=== PATIENT | male | born 1970 | race Caucasian/White ===

== ENCOUNTER 2016-05-19 12:47 | Emergency (ER) | payer BC ==
--- NOTE | 2016-05-19 12:56 | EDM.PDOC ---
ED HISTORY OF PRESENT ILLNESS - General Stated Complaint: HEART ATTACK Time Seen by Provider: 05/19/16 12:53 Source of Information: Reports: Patient History Limitations: Reports: No limitations - History of Present Illness INITIAL COMMENTS - FREE TEXT/NARRATIVE: HISTORY AND PHYSICAL: [46-year-old male presenting with left-sided chest pain Discussion this pain as 8/10-10 out of 10] History of Present Illness: [] Patient took Ambien and Nyquil on Thursday night. Awakened this morning at 6 AM. He does not remember anything that happened after going to bed Thursday night he was on the floor when he awakened He thinks he fell down the stairs at some time Thursday. He lives alone. Strong family history of heart disease with MIs under the age of 50. Patient was snow skiing in [place], [place] last weekend and fell hurting his left ribs Review of Systems: As per history of present illness and below otherwise all systems reviewed and negative. Past medical history: As per history of present illness and as reviewed below otherwise noncontributory. Surgical history: As per history of present illness and as reviewed below otherwise noncontributory. Social history: No reported history of drug or alcohol abuse. Family history: As per history of present illness and as reviewed below otherwise noncontributory. Physical exam: Alert, able to speak in full sentences answering questions appropriately. HEENT: Multiple scrapes to his head, normocehpalic, pupils reactive, negative for conjunctival pallor or scleral icterus, mucous membranes moist, throat clear , neck supple, nontender, trachea midline. Lungs: Clear to auscultation, breath sounds equal bilaterally, chest tender. Ribs tender on left side laterally. Heart: S1S2, regular, negative for clicks, rubs, or JVD. Abdomen: Soft, nondistended, nontender. Negative for masses or hepatossplenmegaly. Negative for costovertebral tenderness. Pelvis: Stable nontender. Genitourinary: Deferred. Rectal: Deferred Extremities: Atraumatic, negative for cords or calf pain. Neurovascular unremarkable. Neuro: Awake, alert, oriented. Cranial nerves II through XII unremarkable. Cerebellum unremarkable. Motor and sensory unremarkable throughout. Exam nonfocal. I discussed case with Dr. Chai Alvarado and patient was given the option of observation overnight and declines. His friend will be coming shortly to stay with him. Patient verbalized understanding of the risk associated with going home and has chosen to go home. Diagnostics: [CBC CMP troponin amylase lipase EKG chest x-ray urine drug screen head CT left side ribs] Therapeutics: Nitrostat Zofran] Impression: [Atypical chest pain Concussion with loss of consciousness Nondisplaced ninth rib fracture and left subacute ] Plan: [Home The patient does have a friend that is driving here and will stay with him for the next few days and make sure he is okay [id number] Motrin as needed with Tylenol for discomfort Any chest pain or significant pain he will need to be reevaluated] Definitive disposition and diagnosis as appropriate pending reevaluation and review of above. Timing/Duration: Reports: Hour(s):, Other (unknown) Location, General: Reports: head, chest, other (left ribs) Quality: Reports: Stabbing Improves with: Reports: None Worsens with: Reports: Movement Associated Symptoms (General): Reports: confusion (of the last 24 hours) - Related Data Allergies/ADRs: Allergies Allergy/AdvReac Type Severity Reaction Status Date / Time No Known Allergies Allergy Verified 05/19/16 12:48 Home Meds: Home Meds Lisinopril 20 mg PO DAILY 05/19/16 [History] Zolpidem [Ambien] 10 mg PO BEDTIME 05/19/16 [History] ED ROS GENERAL - Review of Systems Review Of Systems: ROS reveals no pertinent complaints other than HPI. ED EXAM, GENERAL - Physical Exam Exam: See Below (see dictation) Course - Vital Signs Last Recorded V/S: Last Vital Signs Temp 37.1 C 05/19/16 12:50 Pulse 99 05/19/16 15:36 Resp 18 05/19/16 15:36 BP 137/82 05/19/16 15:36 Pulse Ox 96 05/19/16 15:36 - Orders/Labs/Meds Orders: Active Orders 24 hr Category Date Time Status EKG Documentation Completion [RC] STAT Care 05/19/16 15:57 Active Chest 1V Frontal [CR] Routine Exams 05/19/16 13:06 Taken Head wo Cont [CT] Stat Exams 05/19/16 14:29 Taken Ribs 2V wo Chest Lt [CR] Stat Exams 05/19/16 14:31 Taken Labs: Laboratory Tests 05/19/16 05/19/16 05/19/16 Range/Units 12:59 13:00 13:00 WBC 12.87 H (4.0-11.0) K/uL RBC 5.40 (4.50-5.90) M/uL Hgb 17.3 H (13.0-17.0) g/dL Hct 49.6 (38.0-50.0) % MCV 91.9 (80.0-98.0) fL MCH 32.0 (27.0-32.0) pg MCHC 34.9 (31.0-37.0) g/dL RDW Std Deviation 44.6 (28.0-62.0) fl RDW Coeff of Ishmael 14 (11.0-15.0) % Plt Count 216 (150-400) K/uL MPV 9.40 (7.40-12.00) fL Neut % (Auto) 57.3 (48.0-80.0) % Lymph % (Auto) 34.3 (16.0-40.0) % [place] % (Auto) 7.4 (0.0-15.0) % Eos % (Auto) 0.5 (0.0-7.0) % Baso % (Auto) 0.5 (0.0-1.5) % Neut # 7.4 H (1.4-5.7) K/uL Lymph # 4.4 H (0.6-2.4) K/uL [place] # 1.0 H (0.0-0.8) K/uL Eos # 0.1 (0.0-0.7) K/uL Baso # 0.1 (0.0-0.1) K/uL Nucleated RBC % 0.0 /100WBC Nucleated RBCs # 0 K/uL INR 0.96 (0.86-1.11) Sodium (136-146) mmol/L Potassium (3.5-5.1) mmol/L Chloride (98-110) mmol/L Carbon Dioxide (21-31) mmol/L BUN (6.0-23.0) mg/dL Creatinine (0.6-1.5) mg/dL Est Cr Clr Drug Dosing mL/min Estimated GFR (MDRD) ml/min Glucose (60-110) mg/dL POC Glucose 114 H (60-110) mg/dL Calcium (8.8-10.8) mg/dL Total Bilirubin (0.1-1.5) mg/dL AST (5-40) IU/L ALT (8-54) IU/L Alkaline Phosphatase (40-150) Troponin I (0.0-0.29) NG/ML Total Protein (6.0-8.0) g/dL Albumin (3.5-5.0) g/dL Globulin (2.0-3.5) g/dL Albumin/Globulin Ratio (1.3-2.8) Amylase (10-90) U/L Lipase (7-80) U/L Urine Color Urine Appearance Urine pH (5.0-8.0) Ur Specific [place] (1.001-1.035) Urine Protein (NEGATIVE) mg/dL Urine Glucose (UA) (NEGATIVE) mg/dL Urine Ketones (NEGATIVE) mg/dL Urine Occult Blood (NEGATIVE) Urine Nitrite (NEGATIVE) Urine Bilirubin (NEGATIVE) Urine Urobilinogen (<2.0) EU/dL Ur Leukocyte Esterase (NEGATIVE) Urine RBC (0-2/HPF) Urine WBC (0-5/HPF) Ur Epithelial Cells (NONE-FEW) Urine Bacteria (NEGATIVE) Urine Opiates Screen (NEGATIVE) Ur Oxycodone Screen (NEGATIVE) Urine Methadone Screen (NEGATIVE) Ur Barbiturates Screen (NEGATIVE) Ur Phencyclidine Scrn (NEGATIVE) Ur Amphetamine Screen (NEGATIVE) U Methamphetamines Scrn (NEGATIVE) U Benzodiazepines Scrn (NEGATIVE) U Cocaine Metab Screen (NEGATIVE) U Marijuana (THC) Screen (NEGATIVE) 05/19/16 05/19/16 05/19/16 Range/Units 13:45 13:45 14:03 WBC (4.0-11.0) K/uL RBC (4.50-5.90) M/uL Hgb (13.0-17.0) g/dL Hct (38.0-50.0) % MCV (80.0-98.0) fL MCH (27.0-32.0) pg MCHC (31.0-37.0) g/dL RDW Std Deviation (28.0-62.0) fl RDW Coeff of Ishmael (11.0-15.0) % Plt Count (150-400) K/uL MPV (7.40-12.00) fL Neut % (Auto) (48.0-80.0) % Lymph % (Auto) (16.0-40.0) % [place] % (Auto) (0.0-15.0) % Eos % (Auto) (0.0-7.0) % Baso % (Auto) (0.0-1.5) % Neut # (1.4-5.7) K/uL Lymph # (0.6-2.4) K/uL [place] # (0.0-0.8) K/uL Eos # (0.0-0.7) K/uL Baso # (0.0-0.1) K/uL Nucleated RBC % /100WBC Nucleated RBCs # K/uL INR (0.86-1.11) Sodium 136 (136-146) mmol/L Potassium 4.5 (3.5-5.1) mmol/L Chloride 100 (98-110) mmol/L Carbon Dioxide 24 (21-31) mmol/L BUN 10 (6.0-23.0) mg/dL Creatinine 1.0 (0.6-1.5) mg/dL Est Cr Clr Drug Dosing 100.40 mL/min Estimated GFR (MDRD) > 60.0 ml/min Glucose 110 (60-110) mg/dL POC Glucose (60-110) mg/dL Calcium 9.4 (8.8-10.8) mg/dL Total Bilirubin 1.0 (0.1-1.5) mg/dL AST 38 (5-40) IU/L ALT 41 (8-54) IU/L Alkaline Phosphatase 101 (40-150) Troponin I (0.0-0.29) NG/ML Total Protein 7.3 (6.0-8.0) g/dL Albumin 4.2 (3.5-5.0) g/dL Globulin 3.1 (2.0-3.5) g/dL Albumin/Globulin Ratio 1.4 (1.3-2.8) Amylase 37 (10-90) U/L Lipase 21 (7-80) U/L Urine Color YELLOW Urine Appearance CLEAR Urine pH 6.0 (5.0-8.0) Ur Specific [place] <= 1.005 (1.001-1.035) Urine Protein NEGATIVE (NEGATIVE) mg/dL Urine Glucose (UA) NEGATIVE (NEGATIVE) mg/dL Urine Ketones NEGATIVE (NEGATIVE) mg/dL Urine Occult Blood NEGATIVE (NEGATIVE) Urine Nitrite NEGATIVE (NEGATIVE) Urine Bilirubin NEGATIVE (NEGATIVE) Urine Urobilinogen 1.0 (<2.0) EU/dL Ur Leukocyte Esterase NEGATIVE (NEGATIVE) Urine RBC 0-1 (0-2/HPF) Urine WBC 0-1 (0-5/HPF) Ur Epithelial Cells RARE (NONE-FEW) Urine Bacteria OCCASIONAL (NEGATIVE) Urine Opiates Screen NEGATIVE (NEGATIVE) Ur Oxycodone Screen NEGATIVE (NEGATIVE) Urine Methadone Screen NEGATIVE (NEGATIVE) Ur Barbiturates Screen NEGATIVE (NEGATIVE) Ur Phencyclidine Scrn NEGATIVE (NEGATIVE) Ur Amphetamine Screen NEGATIVE (NEGATIVE) U Methamphetamines Scrn NEGATIVE (NEGATIVE) U Benzodiazepines Scrn NEGATIVE (NEGATIVE) U Cocaine Metab Screen NEGATIVE (NEGATIVE) U Marijuana (THC) Screen NEGATIVE (NEGATIVE) 05/19/16 05/19/16 Range/Units 14:03 16:08 WBC (4.0-11.0) K/uL RBC (4.50-5.90) M/uL Hgb (13.0-17.0) g/dL Hct (38.0-50.0) % MCV (80.0-98.0) fL MCH (27.0-32.0) pg MCHC (31.0-37.0) g/dL RDW Std Deviation (28.0-62.0) fl RDW Coeff of Ishmael (11.0-15.0) % Plt Count (150-400) K/uL MPV (7.40-12.00) fL Neut % (Auto) (48.0-80.0) % Lymph % (Auto) (16.0-40.0) % [place] % (Auto) (0.0-15.0) % Eos % (Auto) (0.0-7.0) % Baso % (Auto) (0.0-1.5) % Neut # (1.4-5.7) K/uL Lymph # (0.6-2.4) K/uL [place] # (0.0-0.8) K/uL Eos # (0.0-0.7) K/uL Baso # (0.0-0.1) K/uL Nucleated RBC % /100WBC Nucleated RBCs # K/uL INR (0.86-1.11) Sodium (136-146) mmol/L Potassium (3.5-5.1) mmol/L Chloride (98-110) mmol/L Carbon Dioxide (21-31) mmol/L BUN (6.0-23.0) mg/dL Creatinine (0.6-1.5) mg/dL Est Cr Clr Drug Dosing mL/min Estimated GFR (MDRD) ml/min Glucose (60-110) mg/dL POC Glucose (60-110) mg/dL Calcium (8.8-10.8) mg/dL Total Bilirubin (0.1-1.5) mg/dL AST (5-40) IU/L ALT (8-54) IU/L Alkaline Phosphatase (40-150) Troponin I < 0.10 < 0.10 (0.0-0.29) NG/ML Total Protein (6.0-8.0) g/dL Albumin (3.5-5.0) g/dL Globulin (2.0-3.5) g/dL Albumin/Globulin Ratio (1.3-2.8) Amylase (10-90) U/L Lipase (7-80) U/L Urine Color Urine Appearance Urine pH (5.0-8.0) Ur Specific [place] (1.001-1.035) Urine Protein (NEGATIVE) mg/dL Urine Glucose (UA) (NEGATIVE) mg/dL Urine Ketones (NEGATIVE) mg/dL Urine Occult Blood (NEGATIVE) Urine Nitrite (NEGATIVE) Urine Bilirubin (NEGATIVE) Urine Urobilinogen (<2.0) EU/dL Ur Leukocyte Esterase (NEGATIVE) Urine RBC (0-2/HPF) Urine WBC (0-5/HPF) Ur Epithelial Cells (NONE-FEW) Urine Bacteria (NEGATIVE) Urine Opiates Screen (NEGATIVE) Ur Oxycodone Screen (NEGATIVE) Urine Methadone Screen (NEGATIVE) Ur Barbiturates Screen (NEGATIVE) Ur Phencyclidine Scrn (NEGATIVE) Ur Amphetamine Screen (NEGATIVE) U Methamphetamines Scrn (NEGATIVE) U Benzodiazepines Scrn (NEGATIVE) U Cocaine Metab Screen (NEGATIVE) U Marijuana (THC) Screen (NEGATIVE) Meds: Medications Discontinued Medications Generic Name Dose Route Start Last Admin Trade Name Freq PRN Reason Stop Dose Admin Aspirin 324 mg 05/19/16 13:06 05/19/16 13:16 Aspirin PO 05/19/16 13:07 324 mg ONETIME ONE Administration Morphine Sulfate 2 mg 05/19/16 13:03 05/19/16 14:03 Morphine IV 05/19/16 13:04 Not Given ONETIME ONE Nitroglycerin 0.4 mg 05/19/16 13:06 05/19/16 13:35 Nitrostat SL 05/19/16 13:17 0.4 mg Q5M PRN Administration Chest Pain Ondansetron HCl 4 mg 05/19/16 13:03 05/19/16 13:21 Zofran IVPUSH 05/19/16 13:04 4 mg ONETIME ONE Administration Departure - Departure Time of Disposition: 16:56 Disposition: Home, Self-Care 01 Condition: good Clinical Impression: Fracture of rib Qualifiers: Encounter type: initial encounter Rib fracture type: single rib Fracture type: closed Laterality: left Qualified Code(s): S22.32XA - Fracture of one rib, left side, initial encounter for closed fracture Concussion Qualifiers: Encounter type: initial encounter Loss of consciousness presence/duration: with LOC of unspecified duration Qualified Code(s): S06.0X9A - Concussion with loss of consciousness of unspecified duration, initial encounter Additional Instructions: The following information is given to patients seen in the emergency department who are being discharged to home. This information is to outline your options for follow-up care. We provide all patients seen in our emergency department with a follow-up referral. The need for follow-up, as well as the timing and circumstances, are variable depending upon the specifics of your emergency department visit. If you don't have a primary care physician on staff, we will provide you with a referral. We always advise you to contact your personal physician following an emergency department visit to inform them of the circumstance of the visit and for follow-up with them and/or the need for any referrals to a consulting specialist. The emergency department will also refer you to a specialist when appropriate. This referral assures that you have the opportunity for followup care with a specialist. All of these measure are taken in an effort to provide you with optimal care, which includes your followup. Under all circumstances we always encourage you to contact your private physician who remains a resource for coordinating your care. When calling for followup care, please make the office aware that this follow-up is from your recent emergency room visit. If for any reason you are refused follow-up, please contact the [facility] emergency department at and asked to speak to the emergency department charge nurse. Return if symptoms worsen follow up with your PCP next week. - My Orders Last 24 Hours: My Active Orders 05/19/16 13:06 Chest 1V Frontal [CR] Routine 05/19/16 14:29 Head wo Cont [CT] Stat 05/19/16 14:31 Ribs 2V wo Chest Lt [CR] Stat 05/19/16 15:57 EKG Documentation Completion [RC] STAT - Assessment/Plan Last 24 Hours: My Active Orders 05/19/16 13:06 Chest 1V Frontal [CR] Routine 05/19/16 14:29 Head wo Cont [CT] Stat 05/19/16 14:31 Ribs 2V wo Chest Lt [CR] Stat 05/19/16 15:57 EKG Documentation Completion [RC] STAT
[2016-05-19] MEDS ORDERED: Morphine 10 MG/ML Syringe IV ONE (13:03)
[2016-05-19] MEDS ORDERED: Ondansetron 4 MG/2 ML SDV IVPUSH ONE (13:03)
[2016-05-19] MEDS ORDERED: Aspirin 81 MG Tab.Chew PO ONE (13:06)
[2016-05-19] MEDS: Nitroglycerin 0.4 MG Tab.SL SL PRN ×3 (13:19→13:35)
[2016-05-19 14:44] LABS: CHLORIDE,CL 100 mmol/L (98-110); SODIUM,NA 136 mmol/L (136-146)
[2016-05-19 16:51] VITALS: BP 145/84
--- NOTE | 2016-05-21 16:16 | CR ---
EXAM DATE: 05/19/16 PATIENT'S AGE: 46 Patient: AJ VIERA Facility: [place], [place] Site . Site : 1970 Study: XRay Chest [id number]/13/2017 1:10:14 PM Ordering Physician: Doctor Harris Final Report: INDICATION: Chest Pain Findings: A single portable CXR shows a normal cardiac and mediastinal silhouette. The lungs show no focal pulmonary opacities. Sharp pleural margins. No pneumothorax. Impression: No evidence of acute pulmonary abnormalities. Dictated by: Evangelist Coker MD @ 05/19/2016 13:33:16 (Electronic Signature) Report Signed by Proxy and Original Signed Document filed in the Medical Record. MTDD
--- NOTE | 2016-05-22 14:51 | CT ---
EXAM DATE: 05/19/16 PATIENT'S AGE: 46 Patient: AJ VIERA Facility: [place], [place] Site . Site : 1970 Study: CT Head [id number]/13/2017 3:31:57 PM Ordering Physician: Doctor Harris Final Report: INDICATION: 46-year-old male with transient loss of consciousness. TECHNIQUE: Contiguous helical scans from foramen magnum to vertex were obtained without contrast. Axial as well as sagittal and coronal reformatted images are reviewed. FINDINGS: The ventricles are normal in size and shape no evidence of acute intracranial hemorrhage no mass effect or shift of midline. No subdural fluid collections. Probable incidental developmental venous anomaly in the right frontal lobe white matter is considered normal variant venous drainage. There is a prominent perivascular fluid space in the inferior left basal ganglia (developmental variant). No evidence of acute infarction no posterior fossa hemorrhage or mass effect. Bony calvarium is unremarkable and there is a minor mucosal thickening in the maxillary sinuses without air-fluid levels. IMPRESSION: No evidence of acute intracranial pathology. Dictated by Nato Melchor MD @ 05/19/2016 3:35:31 PM Dictated by: Nato Melchor MD @ 05/19/2016 15:35:43 (Electronic Signature) Report Signed by Proxy and Original Signed Document filed in the Medical Record. MTDD
--- NOTE | 2016-05-22 14:52 | CR ---
EXAM DATE: 05/19/16 PATIENT'S AGE: 46 Patient: AJ VIERA Facility: [place], [place] Site . Site : 1970 Study: XRay Chest [id number]/13/2017 3:33:13 PM Ordering Physician: Doctor Harris Final Report: LEFT RIBS INDICATION: Pain. Blackout injury. COMPARISON: 05/19/2016 chest radiograph. FINDINGS/IMPRESSION: Left ribs, 4 views. Probable acute or subacute nondisplaced fracture of the lateral left 9th rib. No left pneumothorax or pleural fluid collection. Dictated by Dustin Palacios MD @ 05/19/2016 4:02:21 PM Dictated by: Dustin Palacios MD @ 05/19/2016 16:03:02 (Electronic Signature) Report Signed by Proxy and Original Signed Document filed in the Medical Record. [email or web address]
== END 2016-05-19 17:11 | disposition home or self-care (01) ==
LOC: MW.ED 12:47
DX: S22.32XA Fracture of one rib, left side, initial encounter for closed fracture (principal); S06.0X9A Concussion with loss of consciousness of unspecified duration, initial encounter; Z79.899 Other long term (current) drug therapy; W10.9XXA Fall (on) (from) unspecified stairs and steps, initial encounter
CPT/HCPCS: 36415; 70450; 71010; 71100; 80053; 80305; 81001; 82150; 82962; 83690; 84484; 85025; 85610; 93005; 96374; 99285; A9270; J2405